=== PATIENT | female | born 1985 | race Two or more races ===

== ENCOUNTER 2017-09-10 10:40 | Emergency (ER) | payer MEDICAID | END 2017-09-10 11:37 | disposition left against medical advice (07) | LOC: MW.ED 10:40 | DX: Z53.20 Procedure and treatment not carried out because of patient's decision for unspecified reasons (principal) | CPT/HCPCS: 81001; 81025; 99283 ==

== ENCOUNTER 2018-09-26 21:23 | Emergency (ER) | payer MEDICAID ==
--- NOTE | 2018-09-26 21:27 | EDM.PDOC ---
ED HPI GENERAL MEDICAL PROBLEM - General Stated Complaint: MEDICAL CLEARANCE Time Seen by Provider: 09/26/18 21:25 Source of Information: Reports: Patient History Limitations: Reports: No Limitations - History of Present Illness INITIAL COMMENTS - FREE TEXT/NARRATIVE: HISTORY AND PHYSICAL: History of present illness: Patient is a 33-year-old female who presents to the emergency room with law enforcement for medical clearance. Patient offers no current concerns or complaints other than "feeling a little jittery" from some masses that she snorted this morning. She denies any other alcohol or drug abuse. Patient denies any fever, chills, headache, change in vision, syncope or near syncope. Denies any chest pain, back pain, shortness of breath or cough. Denies any abdominal pain, nausea, vomiting, diarrhea, constipation or dysuria. Has not noted any blood in urine or stool. Patient has been eating and drinking appropriately. Review of systems: As per history of present illness and below otherwise all systems reviewed and negative. Past medical history: As per history of present illness and as reviewed below otherwise noncontributory. Surgical history: As per history of present illness and as reviewed below otherwise noncontributory. Social history: See social history for further information Family history: As per history of present illness and as reviewed below otherwise noncontributory. Physical exam: General: Well-developed and well-nourished 33-year-old female. Alert and oriented. Nontoxic appearing and in no acute distress. HEENT: Atraumatic, normocephalic, pupils equal and reactive bilaterally, negative for conjunctival pallor or scleral icterus, mucous membranes moist, TMs normal bilaterally, throat clear, neck supple, nontender, trachea midline. No drooling or trismus noted. No meningeal signs. No hot potato voice noted. Lungs: Clear to auscultation, breath sounds equal bilaterally, chest nontender. Heart: S1S2, regular rate and rhythm without overt murmur Abdomen: Soft, nondistended, nontender. Negative for masses or hepatosplenomegaly. Negative for costovertebral tenderness. Pelvis: Stable nontender. Genitourinary: Deferred. Rectal: Deferred. Skin: Old scab noted to her nose. Healed scars noted to her inner forearms, self -inflicted. Otherwise skin is intact, warm, dry. No lesions or rashes noted. Extremities: Atraumatic, moves all extremities per self without difficulty or deficits, negative for cords or calf pain. Neurovascular unremarkable. Neuro: Awake, alert, oriented. Cranial nerves II through XII unremarkable. Cerebellum unremarkable. Motor and sensory unremarkable throughout. Exam nonfocal. Notes: Patient's vital signs are stable. She declines the need for further evaluation. We will release into custody of law enforcement. Supportive care measures were reviewed and discussed. Voices understanding and is agreeable to plan of care. Denies any further questions or concerns at this time. Diagnostics: None Therapeutics: None Prescription: None Impression: Encounter for medical screening Plan: Please follow-up with primary care provider as we discussed. Return to the ED as needed and as discussed. Definitive disposition and diagnosis as appropriate pending reevaluation and review of above. - Related Data Allergies Allergy/AdvReac Type Severity Reaction Status Date / Time No Known Allergies Allergy Verified 09/26/18 21:39 Home Meds: Home Meds . 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: Musculoskeletal History: Reports: Other (See Below) Other Musculoskeletal History: unable to assess Neurological History: Reports: Other (See Below) Other Neuro History: unable to assess Psychiatric History: Reports: ADD, ADHD, Addiction, Anxiety, Bipolar, Depression Endocrine/Metabolic History: Reports: Other (See Below) Other Endocrine/Metabolic History: unable to assess Hematologic History: Reports: Other (See Below) Other Hematologic History: unable to assess Immunologic History: Reports: Other (See Below) Other Immunologic History: unable to assess Oncologic (Cancer) History: Reports: Other (See Below) Other Oncologic History: unable to assess Dermatologic History: Reports: Other (See Below) Other Dermatologic History: unable to assess - Infectious Disease History Infectious Disease History: Reports: None - Past Surgical History HEENT Surgical History: Reports: Other (See Below) Other HEENT Surgeries/Procedures: unable to assess Cardiovascular Surgical History: Reports: Other (See Below) Other Cardiovascular Surgeries/Procedures: unable to assess Respiratory Surgical History: Reports: Other (See Below) Other Respiratory Surgeries/Procedures: unable to assess GI Surgical History: Reports: Cholecystectomy Female Surgical History: Reports: Other (See Below) Other Female Surgeries/Procedures: unable to assess Endocrine Surgical History: Reports: Other (See Below) Other Endocrine Surgeries/Procedures: unable to assess Neurological Surgical History: Reports: Other (See Below) Other Neurological Surgeries/Procedures: unable to assess Musculoskeletal Surgical History: Reports: Other (See Below) Other Musculoskeletal Surgeries/Procedures:: unable to assess Oncologic Surgical History: Reports: Other (See Below) Other Oncologic Surgeries/Procedures: unable to assess Dermatological Surgical History: Reports: Other (See Below) Social & Family History - Family History Family Medical History: Noncontributory - Caffeine Use Caffeine Use: Reports: Coffee, Soda Caffeine Use Comment: unable to assess ED ROS GENERAL - Review of Systems Review Of Systems: ROS reveals no pertinent complaints other than HPI. ED EXAM, GENERAL - Physical Exam Exam: See Below (See dictation) Departure - Departure Time of Disposition: 21:41 Disposition: Home, Self-Care 01 Clinical Impression: Encounter for medical screening examination - Discharge Information Additional Instructions: The following information is given to patients seen in the emergency department who are being discharged to home. This information is to outline your options for follow-up care. We provide all patients seen in our emergency department with a follow-up referral. The need for follow-up, as well as the timing and circumstances, are variable depending upon the specifics of your emergency department visit. If you don't have a primary care physician on staff, we will provide you with a referral. We always advise you to contact your personal physician following an emergency department visit to inform them of the circumstance of the visit and for follow-up with them and/or the need for any referrals to a consulting specialist. The emergency department will also refer you to a specialist when appropriate. This referral assures that you have the opportunity for follow-up care with a specialist. All of these measure are taken in an effort to provide you with optimal care, which includes your follow-up. Under all circumstances we always encourage you to contact your private physician who remains a resource for coordinating your care. When calling for follow-up care, please make the office aware that this follow-up is from your recent emergency room visit. If for any reason you are refused follow-up, please contact the [facility] Emergency Department at and asked to speak to the emergency department charge nurse. [facility] [address] [place] [id number] [id number] Drug abuse Follow-up with your primary care provider Return to the ED as needed and as discussed.
== END 2018-09-26 21:47 | disposition home or self-care (01) ==
LOC: MW.ED 21:23
DX: Z02.89 Encounter for other administrative examinations (principal); Z90.49 Acquired absence of other specified parts of digestive tract
CPT/HCPCS: 99282